=== PATIENT | male | born 1975 | race Caucasian/White ===

== ENCOUNTER 2017-09-30 19:49 | Emergency (ER) | payer SELFPAY ==
--- NOTE | 2017-09-30 23:07 | XRay Report ---
FINAL REPORT PROCEDURE: XR RIBS UNI W PA CHEST 3+V LT TECHNIQUE: LEFT rib radiographs, 3 views of the ribs, including PA chest. HISTORY: fell from ladder... rib and chest pain COMPARISON: No prior studies are available for comparison. FINDINGS: Heart: Normal. Mediastinum/Vessels: Normal. Lungs: Normal. Pleural space: Normal. Pneumothorax: None. Bony thorax/ribs: No significant abnormality. IMPRESSION: No acute fracture or focal osseous lesion is seen
--- NOTE | 2017-10-01 00:02 | XRay Report ---
FINAL REPORT PROCEDURE: XR SHOULDER 2+V LT TECHNIQUE: Left shoulder radiographs including AP views in internal and external rotation and abduction. CPT 38290 HISTORY: fell from ladder... shoulder pain COMPARISON: No prior studies are available for comparison. FINDINGS: Fracture (s) and/or Dislocation(s): None . Joint space(s): Normal . Soft tissues: Normal . Bone mineralization: Normal . Foreign bodies: None . IMPRESSION: Normal Examination
--- NOTE | 2017-10-01 00:03 | XRay Report ---
FINAL REPORT PROCEDURE: XR SPINE CERVICAL 2-3V TECHNIQUE: Cervical spine complete, including AP, lateral, open-mouth odontoid, oblique and flexion and extension studies. CPT 44748 HISTORY: fell from ladder neck pain COMPARISON: No prior studies are available for comparison. FINDINGS: Prevertebral soft tissues: Normal . Alignment in neutral position: Normal . Vertebral body movement with flexion and extension: Physiologic . Vertebral body heights/Disk spaces: There are mild multilevel degenerative disc changes.. Fracture(s): None . Neural foramina: Normal . Facets: Normal . Bone mineralization: Normal . IMPRESSION: There is no acute traumatic bony injury.
[2017-10-01 04:09] VITALS: BP 114/76
[2017-10-01] MEDS ORDERED: TYLENOL PO ONE (05:20)
[2017-10-01] MEDS ORDERED: BOOSTRIX IM ONE (06:33)
[2017-10-01] MEDS ORDERED: NORCO 5/325 PO ONE (06:33)
[2017-10-01] MEDS ORDERED: MOTRIN PO ONE (06:34)
--- NOTE | 2017-10-01 06:38 | Emergency Department Report ---
HPI - General Chief Complaint: Fall Time Seen by Provider: 10/01/17 06:13 - HPI HPI: 42-year-old male presents to the emergency department with complaint of a large scratch to the left upper back, a scratch to the top of the head, and left shoulder and left rib cage pain after he fell off a scaffold. The patient was trying to get off of the scaffold from about 8 feet up when he scraped the left side of his body going down and fell onto the left side of his body on the ground. He complains of left shoulder pain, pain to the left lateral mid upper back, and some pain towards the left rib cage. He denies any shortness of breath, chest pain, headache, vision change, nausea, vomiting. He denies any past medical history. He did not take anything for her symptoms prior presentation. His daughters currently at bedside translating for us. He is unsure of his last tetanus vaccination. He does not currently have a primary care physician. He denies hitting his head or any loss of consciousness. ED Past Medical Hx - Past Medical History Previous Medical History?: No - Surgical History Past Surgical History?: No - Social History Smoking Status: Current Some Day Smoker Substance Use Type: None - Medications Home Medications: Home Medications Medication Instructions Recorded Confirmed Last Taken Type Ibuprofen [Motrin 800 MG tab] 800 mg PO Q8HR PRN #20 tablet 10/01/17 Unknown Rx ED Review of Systems ROS: Stated complaint: FALL Other details as noted in HPI Comment: All other systems reviewed and negative Constitutional: denies: chills, fever Eyes: denies: eye pain, eye discharge, vision change ENT: denies: ear pain, throat pain Respiratory: denies: cough, shortness of breath, wheezing Cardiovascular: denies: chest pain, palpitations Gastrointestinal: denies: abdominal pain, nausea, diarrhea Genitourinary: denies: urgency, dysuria Musculoskeletal: back pain, arthralgia Skin: other (abrasion). denies: rash Neurological: denies: weakness, numbness Physical Exam - Physical Exam Vital Signs: Vital Signs 09/30/17 10/01/17 10/01/17 19:57 04:08 04:09 Temperature 98 F 98.1 F Pulse Rate 64 87 Respiratory 18 20 20 Rate Blood Pressure 142/96 Blood Pressure 114/76 [Left] O2 Sat by Pulse 97 96 96 Oximetry 10/01/17 06:08 Temperature Pulse Rate Respiratory 18 Rate Blood Pressure Blood Pressure [Left] O2 Sat by Pulse Oximetry Physical Exam: GENERAL: The patient is well-developed well-nourished. HENT: Normocephalic. Atraumatic. Patient has moist mucous membranes. EYES: Extraocular motions are intact. Pupils equal reactive to light bilaterally. NECK: Supple. Trachea is midline. CHEST/LUNGS: Clear to auscultation. There is no respiratory distress noted. HEART/CARDIOVASCULAR: Regular. There is no tachycardia. There is no murmur. ABDOMEN: Abdomen is soft, nontender. Patient has normal bowel sounds. There is no abdominal distention. SKIN: Skin is warm and dry. There is a large abrasion to the left upper lateral back but no laceration, no current bleeding and no signs or symptoms of infection. NEURO: The patient is awake, alert, and oriented. The patient is cooperative. The patient has no focal neurologic deficits. The patient has normal speech. Cranial nerves II through XII grossly intact. MUSCULOSKELETAL: There is some tenderness on patient to the left shoulder but no obvious deformity. There is some decreased range of motion of the left upper extremity at the shoulder secondary to pain. Radial pulse +2 over 4 to the left wrist. BACK: No midline thoracic or lumbar tenderness to palpation, step-off or deformity. There is some tenderness palpation to the left mid to upper left lateral back where the patient also has the abrasion. ED Course Vital Signs 09/30/17 10/01/17 10/01/17 19:57 04:08 04:09 Temperature 98 F 98.1 F Pulse Rate 64 87 Respiratory 18 20 20 Rate Blood Pressure 142/96 Blood Pressure 114/76 [Left] O2 Sat by Pulse 97 96 96 Oximetry 10/01/17 06:08 Temperature Pulse Rate Respiratory 18 Rate Blood Pressure Blood Pressure [Left] O2 Sat by Pulse Oximetry ED Medical Decision Making - Radiology Data Radiology results: image reviewed interpreted by me: X-ray of the cervical spine does not show any fracture, subluxation or any acute process. Chest x-ray does not show any acute process. There are no pleural effusions, obvious pneumonia and there is no pneumothorax. X-ray of the left shoulder does not show any fracture, dislocation or any acute process. - Medical Decision Making Patient presents with some pain to the left shoulder and left back as well as possibly some neck pain upon first arrival, after he slipped off a scaffold from 8 feet up, scratched himself, and fell onto his left side. No obvious deformities. X-rays were done of the cervical spine, chest with rib cage and the left shoulder that did not show any fractures, dislocations or any acute processes. Vital signs stable throughout his ED course. Patient was given some Tylenol and ibuprofen and a [place] for his discomfort. He was given a tetanus booster for the large abrasion. We discussed how to clean the area and monitor for infections. He was placed in a sling. He was seen and the torn in the emergency department prior to discharge and appeared stable. He appears safe for discharge home and has been given referrals for primary care and an orthopedist. He has been encouraged to return to the emergency Department with any worsening of his symptoms are any acute distress. - Differential Diagnosis fracture, dislocation, subluxation, abrasion, laceration, contusion Critical Care Time: No Critical care attestation.: If time is entered above; I have spent that time in minutes in the direct care of this critically ill patient, excluding procedure time. ED Disposition Clinical Impression: Rib pain on left side Fall Qualifiers: Encounter type: initial encounter Qualified Code(s): W19.XXXA - Unspecified fall, initial encounter Abrasion of back Qualifiers: Encounter type: initial encounter Laterality: left Qualified Code(s): S20.412A - Abrasion of left back wall of thorax, initial encounter Left shoulder pain Qualifiers: Chronicity: acute Qualified Code(s): M25.512 - Pain in left shoulder Back pain Qualifiers: Back pain location: back pain in unspecified location Chronicity: acute Back pain laterality: left Qualified Code(s): M54.9 - Dorsalgia, unspecified Disposition: DC-01 TO HOME OR SELFCARE Is pt being admited?: No Condition: Stable Instructions: Abrasion (ED), Arthralgia (ED), Back Pain (ED), Fall Prevention ( ED) Additional Instructions: Please follow up with a primary care physician in the next few days. I also recommend that you follow-up with an orthopedist regarding your shoulder pain and any other bone/joint pain that you have. Return to the emergency Department with any worsening of your symptoms, or with any acute distress. You can clean the area of the abrasions with soap and water and then make sure it remains dry. Return to the emergency department or be seen by a primary care physician sooner if there are any signs or symptoms of infection. Prescriptions: Ibuprofen [Motrin 800 MG tab] 800 mg PO Q8HR PRN #20 tablet PRN Reason: Pain Referrals: GUANACO GERONIMO MD [Staff Physician] - 3-5 Days [facility] [Outside] - 3-5 Days Forms: Work/School Release Form(ED) Time of Disposition: 07:01 Print Language: [place]
== END 2017-10-01 07:10 | disposition home or self-care (01) ==
LOC: ED 19:49
DX: S20.412A Abrasion of left back wall of thorax, initial encounter (principal); R07.81 Pleurodynia; F17.200 Nicotine dependence, unspecified, uncomplicated; W12.XXXA Fall on and from scaffolding, initial encounter; Y93.89 Activity, other specified; Y92.89 Other specified places as the place of occurrence of the external cause; Y99.8 Other external cause status
CPT/HCPCS: 72040; 90471; 90715; 99283